=== PATIENT | male | born 2000 | race Caucasian/White ===

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

== ENCOUNTER 2023-07-27 08:41 | Emergency (ER) | payer OTHER ==
[~2023-07-27] VITALS: Ht 188 cm; Wt 99.8 kg
[~2023-07-27 08:41] MED LIST: AMAN100 PO; ARIP30; IBUP400 PO; LAMO100 PO; OMEP20ER; ONDA4ODT SL; RISP1; RISP2
[2023-07-27 09:09] VITALS: BP 159/87
[2023-07-27] MEDS ORDERED: Cephalexin Monohydrate 500 MG Cap PO ONE (10:40)
[2023-07-27] MEDS ORDERED: CEPH500 PO (10:42)
== END 2023-07-27 10:55 | disposition home or self-care (01) ==
LOC: ER 08:41
DX: L03.113 Cellulitis of right upper limb (principal); W57.XXXA Bitten or stung by nonvenomous insect and other nonvenomous arthropods, initial encounter; Z88.5 Allergy status to narcotic agent; Z79.899 Other long term (current) drug therapy
CPT/HCPCS: 99282; A9270

== ENCOUNTER → 2023-12-14 | Outpatient (CLI) | payer OTHER ==
[~2023-12-14] MED LIST changes: +CEPH500 PO
[2023-12-14 12:15] LABS: BASOPHILS ABSOLUTE AUTO 0.03 K/mm3 (0.00-0.23); BASOPHILS PERCENT AUTO 0 % (0-2); EOSINOPHILS ABSOLUTE AUTO 0.02 K/mm3 (0.00-0.68); EOSINOPHILS PERCENT AUTO 0 % (0-6); Hematocrit 42.3 % (37.0-53.0); Hemoglobin 13.9 g/dL (13.5-17.5); IMMATURE GRAN ABSOLUTE AUTO 0.06 K/mm3 (0.00-0.10); IMMATURE GRAN PERCENT AUTO 1 % (0-1); LYMPHOCYTES ABSOLUTE AUTO 1.55 K/mm3 (0.84-5.20); LYMPHOCYTES PERCENT AUTO 19 % (21-46); MONOCYTES ABSOLUTE AUTO 0.49 K/mm3 (0.16-1.47); MONOCYTES PERCENT AUTO 6 % (4-13); Mean Corpuscular HGB 25.6 pg (26.0-34.0); Mean Corpuscular HGB Conc 32.9 g/dL (31.5-36.5); Mean Corpuscular Volume 78 fL (80-100); Mean Platelet Volume 8.9 fL (9.1-12.4); NEUTROPHILS ABSOLUTE AUTO 5.86 K/mm3 (1.96-9.15); NEUTROPHILS PERCENT AUTO 73 % (41-73); Platelet Count 253 K/mm3 (150-400); RDW Standard Deviation 38.9 fL (35.1-46.3); Red Blood Cell Count 5.43 M/mm3 (4.30-5.90); White Blood Cell Count 8.01 K/mm3 (4.00-11.30)
[2023-12-14 12:28] LABS: Albumin, Blood 3.5 g/dL (3.4-5.0); Albumin/Globulin Ratio 1.1 (0.8-1.8); Bilirubin, Total 0.5 mg/dL (0.1-1.0); Bun/Creatinine Ratio 9.7 (12.0-20.0); Calcium, Blood 8.7 mg/dL (8.5-10.1); Creatinine, Blood 1.13 mg/dL (0.60-1.20); Globulin, Blood 3.3 g/dL (2.2-4.0); Potassium, Blood 4.2 mmol/L (3.5-5.5); Total Protein, Blood 6.8 g/dL (6.4-8.2)
== END ==
LOC: LAB SHORT 12:12 → LAB 12:12
PROVIDERS: Family Medicine
DX: N21.8 Other lower urinary tract calculus (principal)
CPT/HCPCS: 80053; 85025

== ENCOUNTER 2024-03-25 13:13 | Emergency (ER) | payer OTHER ==
[~2024-03-25] VITALS: Ht 188 cm; Wt 113.4 kg
[2024-03-25] MEDS ORDERED: Ketorolac Tromethamine 15mg Vial IV ONE (14:45)
[2024-03-25] MEDS ORDERED: NS 1,000 ML IV SCH ×2 (14:45→16:40)
[2024-03-25] MEDS ORDERED: Ondansetron HCl 2 MG / ML 2ML Vial IV ONE (14:45)
[2024-03-25 15:11] LABS: BASOPHILS ABSOLUTE AUTO 0.03 K/mm3 (0.00-0.23); BASOPHILS PERCENT AUTO 0 % (0-2); EOSINOPHILS ABSOLUTE AUTO 0.04 K/mm3 (0.00-0.68); EOSINOPHILS PERCENT AUTO 0 % (0-6); Hematocrit 44.5 % (37.0-53.0); Hemoglobin 14.5 g/dL (13.5-17.5); IMMATURE GRAN ABSOLUTE AUTO 0.05 K/mm3 (0.00-0.10); IMMATURE GRAN PERCENT AUTO 1 % (0-1); LYMPHOCYTES ABSOLUTE AUTO 2.03 K/mm3 (0.84-5.20); LYMPHOCYTES PERCENT AUTO 19 % (21-46); MONOCYTES PERCENT AUTO 6 % (4-13); Mean Corpuscular HGB 25.6 pg (26.0-34.0); Mean Corpuscular HGB Conc 32.6 g/dL (31.5-36.5); Mean Corpuscular Volume 79 fL (80-100); Mean Platelet Volume 9.1 fL (9.1-12.4); NEUTROPHILS ABSOLUTE AUTO 8.25 K/mm3 (1.96-9.15); NEUTROPHILS PERCENT AUTO 75 % (41-73); Platelet Count 295 K/mm3 (150-400); RDW Coefficient Variation 13.6 % (11.7-14.2); RDW Standard Deviation 38.5 fL (35.1-46.3); Red Blood Cell Count 5.66 M/mm3 (4.30-5.90)
[2024-03-25 16:04] LABS: Albumin, Blood 3.9 g/dL (3.4-5.0); Albumin/Globulin Ratio 1.1 (0.8-1.8); Bilirubin, Total 0.5 mg/dL (0.1-1.0); Bun/Creatinine Ratio 11.6 (12.0-20.0); Calcium, Blood 9.1 mg/dL (8.5-10.1); Creatinine, Blood 0.95 mg/dL (0.60-1.20); Globulin, Blood 3.5 g/dL (2.2-4.0); Potassium, Blood 3.7 mmol/L (3.5-5.5); Total Protein, Blood 7.4 g/dL (6.4-8.2)
[2024-03-25 16:31] LABS: Source, Urine Clean Catch
[2024-03-25 16:38] LABS: Appearance, Urine Hazy (Clear); Blood, Urine 5+ (Neg); Color, Urine Amber (P-Yellow); Glucose Qualitative, Urine Neg (Neg); Ketones, Urine 4+ (Neg); Leukocyte Esterase, Urine 1+ (Neg); Nitrite, Urine Pos (Neg); Protein, Urine 3+ (Neg); Specific Gravity, Urine 1.025 (1.003-1.022); Urobilinogen, Urine 1+ (Normal)
[2024-03-25] MEDS ORDERED: FentaNYL Citrate 50 MCG/ML 2 ML Injection IV ONE (16:50)
[2024-03-25 17:02] LABS: Base Excess Venous 0.5 mmol/L; Bicarbonate Venous 23.4 mmol/L (24.0-30.0); PCO2 Venous 52.7 mmHg (38-42); pH Blood Venous 7.31 (7.34-7.37)
[2024-03-25 17:06] LABS: Bilirubin, Urine 1+ (Neg)
[2024-03-25 17:10] LABS: Phosphorus, Blood 3.5 mg/dL (2.5-4.9)
[2024-03-25 17:13] LABS: Bacteria Many /hpf; Mucus Mod (0-Heavy); Red Blood Cells, Urine 50-100 /hpf (0-2); Squamous Epithelial Cells Rare /hpf (Few)
[2024-03-25 17:14] LABS: Yeast/Fungi Urine Mod /hpf
[2024-03-25 17:16] LABS: Hyaline Casts 0-2 /lpf (0-2)
[2024-03-25 17:18] LABS: International Normalized Ratio 1.02; Prothrombin Time Results 10.9 Sec (9.7-11.5)
[2024-03-25] MEDS ORDERED: CefTRIAXone Sodium 1,000 MG in NS 100 ML IV ONE (17:25)
[2024-03-25] MEDS ORDERED: TAMS.4ER PO (19:07)
[2024-03-25] MEDS ORDERED: OXYC5 PO (19:07)
[2024-03-25] MEDS ORDERED: IBUP600 PO (19:07)
[2024-03-25] MEDS ORDERED: ONDA4ODT MM (19:08)
[2024-03-25 19:38] VITALS: BP 163/92
== END 2024-03-25 19:39 | disposition home or self-care (01) ==
LOC: ER 13:13
PROVIDERS: Physician Assistant
DX: N20.1 Calculus of ureter (principal); E86.1 Hypovolemia; Z79.899 Other long term (current) drug therapy; Z88.5 Allergy status to narcotic agent
CPT/HCPCS: 74177; 80053; 81001; 82550; 82803; 83605; 83735; 84100; 85025; 85610; 87086; 96361; 96365; 96375; 99284-25; J0696; J1885; J2405; J3010; J7030; Q9967